=== PATIENT | male | born 1960 | race Caucasian/White ===

== ENCOUNTER 2017-10-23 17:10 | Emergency (ER) | payer SELFPAY ==
[2017-10-23] MEDS ORDERED: Sodium Chloride 0.9% 10 ML Syringe FLUSH PRN ×2 (17:26→19:11)
[2017-10-23 18:21] LABS: CHLORIDE,CL 60 mmol/L (98-107); SODIUM,NA 108 mmol/L (136-145)
[2017-10-23] MEDS ORDERED: Potassium Chloride 20 MEQ Tab.ER PO ONE (18:21)
[2017-10-23] MEDS ORDERED: Potassium Chloride 10 MEQ in Premix Bag 1 BAG IV ONE (18:22)
[2017-10-23] MEDS ORDERED: LORazepam 2 MG/ML MDV IVPUSH ONE ×2 (18:38→19:25)
[2017-10-23] MEDS ORDERED: Sodium Chloride 0.9% 1,000 ML IV ONE (18:49)
[2017-10-23 19:07] LABS: SODIUM,NA 108 mmol/L (136-145)
[2017-10-23 19:08] LABS: CHLORIDE,CL 61 mmol/L (98-107)
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
[2017-10-23] MEDS ORDERED: Sodium Chloride 3% 500 ML IV SCH (20:15)
[2017-10-23 20:52] VITALS: BP 129/67
== END 2017-10-23 20:30 ==
LOC: LL.ED 17:10
DX: F10.239 Alcohol dependence with withdrawal, unspecified (principal); E87.1 Hypo-osmolality and hyponatremia; E87.6 Hypokalemia; Y90.0 Blood alcohol level of less than 20 mg/100 ml; I10 Essential (primary) hypertension; E78.00 Pure hypercholesterolemia, unspecified
CPT/HCPCS: 36415; 70450; 80053; 80305; 81001; 82140; 83605; 85025; 93005; 96365; 96375; 96376; 99285; A9270; G0480; J2060; J3480; J7050

== ENCOUNTER 2020-02-29 20:04 | Emergency (ER) | payer MEDICAID ==
[2020-02-29 20:07] VITALS: BP 120/85; PULSE 80
[2020-02-29] MEDS: Ondansetron 4 MG/2 ML SDV IVPUSH ONE (20:28)
[2020-02-29] MEDS: Lactated Ringers 1,000 ML IV ONE (20:28)
[2020-02-29] MEDS: Sodium Chloride 0.9% 10 ML Syringe FLUSH PRN (20:29)
[2020-02-29 20:52] LABS: CHLORIDE,CL 97 mmol/L (98-107); SODIUM,NA 139 mmol/L (136-145)
[2020-02-29] MEDS: LORazepam 2 MG/ML SDV IVPUSH ONE (21:12)
[2020-02-29] MEDS: Thiamine 100 MG in Sodium Chloride 0.9% 100 ML IV ONE (21:16)
[2020-02-29] MEDS: Ondansetron 4 MG/2 ML SDV ONE (21:19)
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
[2020-02-29] MEDS: Pantoprazole 40 MG Vial IVPUSH ONE (22:02)
[2020-02-29] MEDS: Iopamidol 755 Mg/ML 100 ML Bottle IVPUSH STA (22:03)
== END 2020-02-29 22:12 | disposition home or self-care (01) ==
LOC: LL.ED 20:04
DX: F10.129 Alcohol abuse with intoxication, unspecified (principal); I10 Essential (primary) hypertension; Y90.8 Blood alcohol level of 240 mg/100 ml or more; E86.0 Dehydration; R63.4 Abnormal weight loss; R11.2 Nausea with vomiting, unspecified; F17.200 Nicotine dependence, unspecified, uncomplicated
CPT/HCPCS: 36415; 71046; 71275; 74019; 74177; 80053; 80307; 83880; 85025; 85379; 96361; 96365; 96375; 99284; C9113; J2060; J2405; J3411; J7050; J7120; Q9967

== ENCOUNTER 2020-03-12 19:01 | Emergency (ER) | payer MEDICAID ==
[2020-03-12] MEDS ORDERED: Ondansetron 4 MG/2 ML SDV IVPUSH PRN (19:23)
[2020-03-12] MEDS ORDERED: Sodium Chloride 0.9% 1,000 ML IV ONE (19:23)
[2020-03-12] MEDS ORDERED: Sodium Chloride 0.9% 10 ML Syringe FLUSH PRN (19:25)
[2020-03-12 19:31] VITALS: BP 114/85; PULSE 80
[2020-03-12 19:47] LABS: CHLORIDE,CL 102 mmol/L (98-107); SODIUM,NA 144 mmol/L (136-145)
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
== END 2020-03-12 20:20 | disposition left against medical advice (07) ==
LOC: LL.ED 19:01
DX: F10.129 Alcohol abuse with intoxication, unspecified (principal); E83.42 Hypomagnesemia; D69.6 Thrombocytopenia, unspecified; D72.819 Decreased white blood cell count, unspecified; R79.89 Other specified abnormal findings of blood chemistry; R74.0 Nonspecific elevation of levels of transaminase and lactic acid dehydrogenase [LDH]; I10 Essential (primary) hypertension
CPT/HCPCS: 36415; 80053; 80307; 83605; 83735; 85025; 99284

== ENCOUNTER 2021-01-02 14:33 | Emergency (ER) | payer MEDICAID ==
[2021-01-02 14:39] VITALS: BP 151/90; PULSE 90
[2021-01-02 15:15] LABS: CHLORIDE,CL 101 mmol/L (98-107); SODIUM,NA 139 mmol/L (136-145)
[2021-01-02] MEDS ORDERED: Sodium Chloride 0.9% 10 ML Syringe FLUSH PRN (15:25)
[2021-01-02] MEDS ORDERED: Thiamine 100 MG in Sodium Chloride 0.9% 100 ML IV ONE (15:27)
[2021-01-02] MEDS ORDERED: methylPREDNISolone Sodium Succinate 40 MG/1 ML SDV IVPUSH ONE (16:05)
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
== END 2021-01-02 18:30 | disposition home or self-care (01) ==
LOC: LL.ED 14:33
DX: M54.9 Dorsalgia, unspecified (principal); G89.29 Other chronic pain; E83.42 Hypomagnesemia; I10 Essential (primary) hypertension
CPT/HCPCS: 36415; 70450; 80053; 80307; 83735; 85025; 96365; 96366; 96368; 96374; 99283; 99284-25; J2920; J3411; J3475

== ENCOUNTER 2022-04-09 16:50 | Emergency (ER) | payer MEDICARE, MEDICAID ==
[2022-04-09 17:04] VITALS: BP 132/86; PULSE 100
[2022-04-09 17:49] LABS: CHLORIDE,CL 95 mmol/L (98-107); SODIUM,NA 138 mmol/L (136-145)
[2022-04-09 17:50] LABS: ANION GAP 25.1 meq/L (7-15); ESTIMATED GFR 90 mL/min (>=60)
[2022-04-09] MEDS ORDERED: Ondansetron 4 MG Tab.DIS PO SCH (18:15)
== END 2022-04-09 18:25 | disposition home or self-care (01) ==
LOC: LL.ED 16:50
DX: E87.1 Hypo-osmolality and hyponatremia (principal); I10 Essential (primary) hypertension; F17.210 Nicotine dependence, cigarettes, uncomplicated
CPT/HCPCS: 36415; 80053; 85025; 99283; 99284

== ENCOUNTER 2022-09-16 17:15 | Emergency (ER) | payer MEDICARE, MEDICAID ==
[2022-09-16 17:23] VITALS: PULSE 80
[2022-09-16 18:32] LABS: ANION GAP 17.9 meq/L (7-15)
[2022-09-16] MEDS ORDERED: Sodium Chloride 0.9% 10 ML Syringe FLUSH PRN (18:43)
[2022-09-16 18:45] LABS: CORONAVIRUS COVID-19 NAA NEGATIVE (NEGATIVE); RESPIRATORY SYNCYTIAL VIR NAA NEGATIVE (NEGATIVE)
[2022-09-16] MEDS ORDERED: Ondansetron 4 MG/2 ML SDV IVPUSH PRN (18:45)
[2022-09-16] MEDS ORDERED: Sodium Chloride 0.9% 1,000 ML IV ONE (18:45)
[2022-09-16] MEDS ORDERED: Ondansetron 4 MG Tab.DIS PO PRN (19:27)
[2022-09-16 20:46] VITALS: BP 120/80
== END 2022-09-16 19:40 | disposition home or self-care (01) ==
LOC: LL.ED 17:15
DX: K52.9 Noninfective gastroenteritis and colitis, unspecified (principal); I10 Essential (primary) hypertension; F17.210 Nicotine dependence, cigarettes, uncomplicated; Z79.899 Other long term (current) drug therapy; Z20.822 Contact with and (suspected) exposure to COVID-19
CPT/HCPCS: 0241U; 36415; 80053; 85025; 96361; 96374; 99284-25; J2405; J7030

== ENCOUNTER 2023-02-17 18:16 | Emergency (ER) | payer MEDICARE, MEDICAID ==
[2023-02-17] MEDS ORDERED: Sodium Chloride 0.9% 10 ML Syringe FLUSH PRN (19:10)
[2023-02-17] MEDS ORDERED: Sodium Chloride 0.9% 1,000 ML IV ONE (19:10)
[2023-02-17 19:31] LABS: ANION GAP 13.6 meq/L (7-15); CHLORIDE,CL 99 mmol/L (98-107); SODIUM,NA 139 mmol/L (136-145)
[2023-02-17 19:32] LABS: ESTIMATED GFR 100 mL/min (>=60)
[2023-02-17 22:18] VITALS: BP 112/85; PULSE 78
== END 2023-02-17 20:50 | disposition home or self-care (01) ==
LOC: LL.ED 18:16
DX: F10.920 Alcohol use, unspecified with intoxication, uncomplicated (principal); I10 Essential (primary) hypertension; Y90.2 Blood alcohol level of 40-59 mg/100 ml
CPT/HCPCS: 36415; 80053; 80143; 80307; 85025; 93005; 99284

== ENCOUNTER 2023-02-26 21:15 | Emergency (ER) | payer MEDICARE, MEDICAID ==
[2023-02-26] MEDS: Sodium Chloride 0.9% 10 ML Syringe FLUSH PRN ×4 (21:26→23:50)
[2023-02-26] MEDS ORDERED: Sodium Chloride 0.9% 1,000 ML IV SCH ×2 (21:30→23:45)
[2023-02-26 21:36] LABS: BASOPHILS ABSOLUTE AUTO 0.14 K/uL (0.00-0.20); BASOPHILS PERCENT AUTO 2.4 % (0.0-2.0); EOSINOPHILS ABSOLUTE AUTO 0.02 K/uL (0.00-0.50); EOSINOPHILS PERCENT AUTO 0.3 % (0.0-5.0); HEMATOCRIT 40.6 % (39.0-49.0); HEMOGLOBIN 13.4 g/dL (13.1-16.8); LYMPHOCYTES ABSOLUTE AUTO 2.37 K/uL (0.50-3.50); MEAN CORPUSCULAR HEMOGLOBIN 31.5 pg (28.2-33.3); MEAN CORPUSCULAR VOLUME 95.3 fL (84.0-98.0); MONOCYTES ABSOLUTE AUTO 0.92 K/uL (0.00-1.00); MONOCYTES PERCENT AUTO 15.9 % (2.0-14.0); NEUTROPHILS ABSOLUTE AUTO 2.33 K/uL (1.40-7.00); NEUTROPHILS PERCENT AUTO 40.4 % (45.0-80.0); PLATELET COUNT,PLT 278 K/uL (150-350); RED BLOOD CELL COUNT 4.26 M/uL (4.33-5.41); RED CELL DISTRIBUTION WIDTH 17.2 % (11.2-14.1); WHITE BLOOD CELL COUNT,WBC 5.8 K/uL (4.0-10.2)
[2023-02-26 22:00] LABS: APPEARANCE,URINE CLEAR; BILIRUBIN,URINE NEGATIVE (NEGATIVE); COLOR,URINE YELLOW; GLUCOSE,URINE NEGATIVE (NEGATIVE); KETONES,URINE 15 mg/dL (NEGATIVE); LEUKOCYTE ESTERASE,URINE NEGATIVE (NEGATIVE); NITRITE,URINE NEGATIVE (NEGATIVE); OCCULT BLOOD,URINE NEGATIVE (NEGATIVE); PROTEIN,URINE NEGATIVE (NEGATIVE); UROBILINOGEN,URINE 0.2 E.U./dL (0.2-1.0)
[2023-02-26 22:02] LABS: LACTIC ACID 7.1 mmol/L (0.4-2.0)
[2023-02-26 22:05] LABS: ALANINE AMINOTRANSFERASE,ALT 58 U/L (12-78); ALBUMIN 4.2 g/dL (3.4-5.0); ALKALINE PHOSPHATASE 99 IU/L (46-116); ANION GAP 12.9 meq/L (7-15); ASPARTATE AMNIOTRANSFERASE,AST 73 U/L (15-37); BILIRUBIN TOTAL 0.5 mg/dL (0.2-1.0); BLOOD UREA NITROGEN,BUN 15 mg/dL (7-18); CALCIUM 8.8 mg/dL (8.5-10.1); CARBON DIOXIDE,CO2 28.1 mmol/L (21.0-32.0); CHLORIDE,CL 100 mmol/L (98-107); CREATININE 0.91 mg/dL (0.51-1.17); GLUCOSE RANDOM 173 mg/dL (70-99); MAGNESIUM 1.7 mg/dL (1.8-2.4); POTASSIUM,K 4.3 mmol/L (3.5-5.1); PROTEIN TOTAL,TP 7.8 g/dL (6.4-8.2); SODIUM,NA 141 mmol/L (136-145); TSH ULTRASENSITIVE 5.299 mIU/mL (0.358-3.740)
[2023-02-26 22:07] LABS: ESTIMATED GFR 96 mL/min (>=60)
[2023-02-26 22:08] LABS: C-REACTIVE PROTEIN < 0.2 mg/dL (<=0.9)
[2023-02-26 22:13] LABS: AMPHETAMINES SCREEN, URINE NEGATIVE (NEGATIVE); BARBITURATE SCREEN,URINE NEGATIVE (NEGATIVE); BENZODIAZEPINES SCREEN,URINE NEGATIVE (NEGATIVE); COCAINE METABOLITES,URINE NEGATIVE (NEGATIVE); EDDP,URINE SCREEN NEGATIVE (NEGATIVE); METHAMPHETAMINES SCREEN, URINE NEGATIVE (NEGATIVE); TCA SCREEN,URINE NEGATIVE (NEGATIVE); THC SCREEN,URINE 50 NG/ML NEGATIVE (NEGATIVE)
[2023-02-26 22:16] LABS: BUPRENORPHINE SCREEN,URINE NEGATIVE (NEGATIVE); OXYCODONE SCREEN,URINE NEGATIVE (NEGATIVE)
[2023-02-26 22:26] LABS: INR 0.9; PROTHROMBIN TIME 9.3 SEC (9.6-11.3)
[2023-02-26 22:28] LABS: PTT,PARTIAL THROMBOPLSTIN TIME 23.2 SEC (23.6-29.8)
[2023-02-26 22:41] LABS: CORONAVIRUS COVID-19 NAA NEGATIVE (NEGATIVE); INFLUENZA A NAA NEGATIVE (NEGATIVE); INFLUENZA B NAA NEGATIVE (NEGATIVE); RESPIRATORY SYNCYTIAL VIR NAA NEGATIVE (NEGATIVE)
[2023-02-26] MEDS ORDERED: Magnesium Sulfate/Water 2 GM in Premix Bag 1 BAG IV ONE (23:48)
[2023-02-27 00:37] VITALS: BP 112/76; PULSE 78
== END 2023-02-27 00:16 ==
LOC: LL.ED 21:15
DX: R56.9 Unspecified convulsions (principal); R45.851 Suicidal ideations; I10 Essential (primary) hypertension; Z20.822 Contact with and (suspected) exposure to COVID-19
CPT/HCPCS: 0241U; 36415; 70450; 80053; 80305-QW; 80307; 81003; 82140; 82550; 83605; 83735; 84443; 84484; 85025; 85610; 85730; 86140; 93005; 93010; 96361; 96365; 96375; 96376; 99284; 99285-25; J3360; J3475; J3490; J7030

== ENCOUNTER 2023-03-03 18:39 | Emergency (ER) | payer MEDICARE, MEDICAID ==
[2023-03-03] MEDS ORDERED: Sodium Chloride 0.9% 10 ML Syringe FLUSH PRN (18:42)
[2023-03-03] MEDS: Sodium Chloride 0.9% 1,000 ML IV ONE (19:07)
[2023-03-03 19:11] LABS: BASOPHILS ABSOLUTE AUTO 0.09 K/uL (0.00-0.20); BASOPHILS PERCENT AUTO 1.1 % (0.0-2.0); EOSINOPHILS ABSOLUTE AUTO 0.08 K/uL (0.00-0.50); HEMATOCRIT 38.4 % (39.0-49.0); HEMOGLOBIN 12.7 g/dL (13.1-16.8); LYMPHOCYTES ABSOLUTE AUTO 3.34 K/uL (0.50-3.50); LYMPHOCYTES PERCENT AUTO 40.7 % (10.0-50.0); MEAN CORPUSCULAR HEMOGLOBIN 32.2 pg (28.2-33.3); MEAN CORPUSCULAR HGB CONC 33.1 g/dL (31.7-36.0); MEAN CORPUSCULAR VOLUME 97.5 fL (84.0-98.0); MONOCYTES ABSOLUTE AUTO 0.42 K/uL (0.00-1.00); MONOCYTES PERCENT AUTO 5.1 % (2.0-14.0); NEUTROPHILS ABSOLUTE AUTO 4.27 K/uL (1.40-7.00); NEUTROPHILS PERCENT AUTO 52.1 % (45.0-80.0); PLATELET COUNT,PLT 237 K/uL (150-350); RED BLOOD CELL COUNT 3.94 M/uL (4.33-5.41); RED CELL DISTRIBUTION WIDTH 17.5 % (11.2-14.1); WHITE BLOOD CELL COUNT,WBC 8.2 K/uL (4.0-10.2)
[2023-03-03] MEDS: Pantoprazole 40 MG Vial IVPUSH ONE (19:12)
[2023-03-03 19:26] VITALS: PULSE 70
[2023-03-03 19:31] VITALS: BP 107/74
[2023-03-03 19:45] LABS: ALANINE AMINOTRANSFERASE,ALT 90 U/L (12-78); ALKALINE PHOSPHATASE 94 IU/L (46-116); ANION GAP 10.8 meq/L (7-15); ASPARTATE AMNIOTRANSFERASE,AST 120 U/L (15-37); BILIRUBIN TOTAL 0.5 mg/dL (0.2-1.0); BLOOD UREA NITROGEN,BUN 10 mg/dL (7-18); CARBON DIOXIDE,CO2 31.2 mmol/L (21.0-32.0); CHLORIDE,CL 103 mmol/L (98-107); CREATININE 0.82 mg/dL (0.51-1.17); ETHANOL BLOOD MEDICAL 0.349 g/dL (0.000-0.080); GLUCOSE RANDOM 90 mg/dL (70-99); MAGNESIUM 1.8 mg/dL (1.8-2.4); POTASSIUM,K 3.6 mmol/L (3.5-5.1); PROTEIN TOTAL,TP 7.6 g/dL (6.4-8.2); SODIUM,NA 145 mmol/L (136-145)
[2023-03-03 19:46] LABS: ESTIMATED GFR 101 mL/min (>=60)
== END 2023-03-03 19:50 | disposition left against medical advice (07) ==
LOC: LL.ED 18:39
DX: F10.120 Alcohol abuse with intoxication, uncomplicated (principal); I10 Essential (primary) hypertension; Z79.899 Other long term (current) drug therapy
CPT/HCPCS: 36415; 80053; 80307; 83605; 83735; 85025; 96361; 96374; 96375; 99283; 99285-25; C9113; J3360; J7030

== ENCOUNTER 2023-03-08 14:44 | Emergency (ER) | payer MEDICARE, MEDICAID ==
[2023-03-08] MEDS ORDERED: Sodium Chloride 0.9% 10 ML Syringe FLUSH PRN (15:13)
[2023-03-08 15:29] LABS: BASOPHILS ABSOLUTE AUTO 0.09 K/uL (0.00-0.20); BASOPHILS PERCENT AUTO 1.4 % (0.0-2.0); EOSINOPHILS ABSOLUTE AUTO 0.04 K/uL (0.00-0.50); EOSINOPHILS PERCENT AUTO 0.6 % (0.0-5.0); HEMATOCRIT 39.1 % (39.0-49.0); HEMOGLOBIN 13.3 g/dL (13.1-16.8); LYMPHOCYTES ABSOLUTE AUTO 2.52 K/uL (0.50-3.50); LYMPHOCYTES PERCENT AUTO 40.2 % (10.0-50.0); MEAN CORPUSCULAR VOLUME 94.2 fL (84.0-98.0); MONOCYTES ABSOLUTE AUTO 0.61 K/uL (0.00-1.00); MONOCYTES PERCENT AUTO 9.7 % (2.0-14.0); NEUTROPHILS ABSOLUTE AUTO 3.01 K/uL (1.40-7.00); NEUTROPHILS PERCENT AUTO 48.1 % (45.0-80.0); PLATELET COUNT,PLT 247 K/uL (150-350); RED BLOOD CELL COUNT 4.15 M/uL (4.33-5.41); RED CELL DISTRIBUTION WIDTH 17.1 % (11.2-14.1); WHITE BLOOD CELL COUNT,WBC 6.3 K/uL (4.0-10.2)
[2023-03-08 15:53] LABS: ALANINE AMINOTRANSFERASE,ALT 55 U/L (12-78); ALBUMIN 4.2 g/dL (3.4-5.0); ALKALINE PHOSPHATASE 110 IU/L (46-116); ANION GAP 10.9 meq/L (7-15); ASPARTATE AMNIOTRANSFERASE,AST 57 U/L (15-37); BILIRUBIN TOTAL 0.5 mg/dL (0.2-1.0); BLOOD UREA NITROGEN,BUN 8 mg/dL (7-18); CALCIUM 8.8 mg/dL (8.5-10.1); CARBON DIOXIDE,CO2 30.1 mmol/L (21.0-32.0); CHLORIDE,CL 99 mmol/L (98-107); CREATININE 0.82 mg/dL (0.51-1.17); ESTIMATED GFR 101 mL/min (>=60); ETHANOL BLOOD MEDICAL 0.368 g/dL (0.000-0.080); GLUCOSE RANDOM 137 mg/dL (70-99); POTASSIUM,K 3.5 mmol/L (3.5-5.1); SODIUM,NA 140 mmol/L (136-145)
[2023-03-08 16:58] LABS: AMPHETAMINES SCREEN, URINE NEGATIVE (NEGATIVE); BARBITURATE SCREEN,URINE NEGATIVE (NEGATIVE); BENZODIAZEPINES SCREEN,URINE NEGATIVE (NEGATIVE); COCAINE METABOLITES,URINE NEGATIVE (NEGATIVE); EDDP,URINE SCREEN NEGATIVE (NEGATIVE); METHAMPHETAMINES SCREEN, URINE NEGATIVE (NEGATIVE); TCA SCREEN,URINE NEGATIVE (NEGATIVE); THC SCREEN,URINE 50 NG/ML NEGATIVE (NEGATIVE)
[2023-03-08 16:59] LABS: BUPRENORPHINE SCREEN,URINE NEGATIVE (NEGATIVE); OXYCODONE SCREEN,URINE NEGATIVE (NEGATIVE)
[2023-03-08] MEDS: LORazepam 2 MG/ML SDV IVPUSH ONE (18:58)
[2023-03-08] MEDS: LORazepam 2 MG/ML SDV ONE (18:58)
[2023-03-08 22:31] VITALS: BP 120/77; PULSE 87
== END 2023-03-08 21:15 ==
LOC: LL.ED 14:44
DX: T14.91XA Suicide attempt, initial encounter (principal); F17.210 Nicotine dependence, cigarettes, uncomplicated; I10 Essential (primary) hypertension; Z79.899 Other long term (current) drug therapy
CPT/HCPCS: 36415; 80053; 80305; 80307; 85025; 93005; 96374; 99285; J2060

== ENCOUNTER 2023-03-17 19:24 | Emergency (ER) | payer MEDICARE, MEDICAID ==
[2023-03-17] MEDS ORDERED: LORazepam 2 MG/ML SDV IVPUSH ONE (19:26)
[2023-03-17] MEDS ORDERED: Sodium Chloride 0.9% 10 ML Syringe FLUSH PRN (19:51)
[2023-03-17] MEDS ORDERED: Sodium Chloride 0.9% 1,000 ML IV ONE (19:52)
[2023-03-17] MEDS ORDERED: Ondansetron 4 MG/2 ML SDV IVPUSH PRN (19:54)
[2023-03-17 19:57] LABS: BASOPHILS ABSOLUTE AUTO 0.05 K/uL (0.00-0.20); BASOPHILS PERCENT AUTO 0.7 % (0.0-2.0); EOSINOPHILS ABSOLUTE AUTO 0.02 K/uL (0.00-0.50); EOSINOPHILS PERCENT AUTO 0.3 % (0.0-5.0); HEMATOCRIT 41.1 % (39.0-49.0); HEMOGLOBIN 14.3 g/dL (13.1-16.8); LYMPHOCYTES ABSOLUTE AUTO 2.18 K/uL (0.50-3.50); LYMPHOCYTES PERCENT AUTO 29.3 % (10.0-50.0); MEAN CORPUSCULAR HEMOGLOBIN 31.9 pg (28.2-33.3); MEAN CORPUSCULAR HGB CONC 34.8 g/dL (31.7-36.0); MEAN CORPUSCULAR VOLUME 91.7 fL (84.0-98.0); MONOCYTES ABSOLUTE AUTO 1.14 K/uL (0.00-1.00); MONOCYTES PERCENT AUTO 15.3 % (2.0-14.0); NEUTROPHILS ABSOLUTE AUTO 4.05 K/uL (1.40-7.00); NEUTROPHILS PERCENT AUTO 54.4 % (45.0-80.0); PLATELET COUNT,PLT 158 K/uL (150-350); RED BLOOD CELL COUNT 4.48 M/uL (4.33-5.41); WHITE BLOOD CELL COUNT,WBC 7.4 K/uL (4.0-10.2)
[2023-03-17 20:02] LABS: ALANINE AMINOTRANSFERASE,ALT 40 U/L (12-78); ALBUMIN 4.5 g/dL (3.4-5.0); ALKALINE PHOSPHATASE 119 IU/L (46-116); ASPARTATE AMNIOTRANSFERASE,AST 70 U/L (15-37); BILIRUBIN TOTAL 1.5 mg/dL (0.2-1.0); BLOOD UREA NITROGEN,BUN 7 mg/dL (7-18); CALCIUM 9.5 mg/dL (8.5-10.1); CARBON DIOXIDE,CO2 28.2 mmol/L (21.0-32.0); CHLORIDE,CL 88 mmol/L (98-107); CREATININE 0.86 mg/dL (0.51-1.17); ESTIMATED GFR 99 mL/min (>=60); ETHANOL BLOOD MEDICAL 0.333 g/dL (0.000-0.080); GLUCOSE RANDOM 245 mg/dL (70-99); POTASSIUM,K 3.2 mmol/L (3.5-5.1); PROTEIN TOTAL,TP 8.4 g/dL (6.4-8.2); SODIUM,NA 130 mmol/L (136-145)
[2023-03-17] MEDS ORDERED: Potassium Chloride 10 MEQ Tab.ER PO ONE (20:42)
[2023-03-17 21:04] LABS: AMPHETAMINES SCREEN, URINE NEGATIVE (NEGATIVE); BARBITURATE SCREEN,URINE NEGATIVE (NEGATIVE); BENZODIAZEPINES SCREEN,URINE NEGATIVE (NEGATIVE); BUPRENORPHINE SCREEN,URINE NEGATIVE (NEGATIVE); COCAINE METABOLITES,URINE NEGATIVE (NEGATIVE); EDDP,URINE SCREEN NEGATIVE (NEGATIVE); METHAMPHETAMINES SCREEN, URINE NEGATIVE (NEGATIVE); OXYCODONE SCREEN,URINE NEGATIVE (NEGATIVE); TCA SCREEN,URINE NEGATIVE (NEGATIVE); THC SCREEN,URINE 50 NG/ML NEGATIVE (NEGATIVE)
[2023-03-17 21:12] VITALS: BP 116/84; PULSE 91
== END 2023-03-17 21:30 | disposition home or self-care (01) ==
LOC: LL.ED 19:24
DX: F10.929 Alcohol use, unspecified with intoxication, unspecified (principal); E87.1 Hypo-osmolality and hyponatremia; I10 Essential (primary) hypertension; F17.210 Nicotine dependence, cigarettes, uncomplicated; Z79.899 Other long term (current) drug therapy
CPT/HCPCS: 36415; 80053; 80305-QW; 80307; 85025; 96361; 96374; 96375; 99284; 99284-25; A9270-GY; J2060; J2405; J7030

== ENCOUNTER 2023-03-21 15:25 | Emergency (ER) | payer MEDICARE, MEDICAID ==
[2023-03-21] MEDS ORDERED: Sodium Chloride 0.9% 10 ML Syringe FLUSH PRN (15:42)
[2023-03-21] MEDS: Sodium Chloride 0.9% 1,000 ML IV ONE ×2 (15:45→16:48)
[2023-03-21 15:51] LABS: BASOPHILS ABSOLUTE AUTO 0.08 K/uL (0.00-0.20); BASOPHILS PERCENT AUTO 1.2 % (0.0-2.0); EOSINOPHILS ABSOLUTE AUTO 0.04 K/uL (0.00-0.50); EOSINOPHILS PERCENT AUTO 0.6 % (0.0-5.0); HEMATOCRIT 40.2 % (39.0-49.0); HEMOGLOBIN 13.6 g/dL (13.1-16.8); LYMPHOCYTES ABSOLUTE AUTO 1.74 K/uL (0.50-3.50); MEAN CORPUSCULAR HEMOGLOBIN 32.2 pg (28.2-33.3); MEAN CORPUSCULAR HGB CONC 33.8 g/dL (31.7-36.0); MONOCYTES ABSOLUTE AUTO 0.67 K/uL (0.00-1.00); MONOCYTES PERCENT AUTO 9.6 % (2.0-14.0); NEUTROPHILS ABSOLUTE AUTO 4.42 K/uL (1.40-7.00); NEUTROPHILS PERCENT AUTO 63.6 % (45.0-80.0); PLATELET COUNT,PLT 142 K/uL (150-350); RED BLOOD CELL COUNT 4.23 M/uL (4.33-5.41); RED CELL DISTRIBUTION WIDTH 16.5 % (11.2-14.1)
[2023-03-21 16:03] LABS: ALANINE AMINOTRANSFERASE,ALT 73 U/L (12-78); ALBUMIN 4.3 g/dL (3.4-5.0); ALKALINE PHOSPHATASE 133 IU/L (46-116); ASPARTATE AMNIOTRANSFERASE,AST 165 U/L (15-37); BILIRUBIN TOTAL 1.3 mg/dL (0.2-1.0); BLOOD UREA NITROGEN,BUN 13 mg/dL (7-18); CALCIUM 9.1 mg/dL (8.5-10.1); CARBON DIOXIDE,CO2 19.3 mmol/L (21.0-32.0); CHLORIDE,CL 92 mmol/L (98-107); CREATININE 0.84 mg/dL (0.51-1.17); ETHANOL BLOOD MEDICAL 0.144 g/dL (0.000-0.080); GLUCOSE RANDOM 63 mg/dL (70-99); POTASSIUM,K 3.5 mmol/L (3.5-5.1); PROTEIN TOTAL,TP 8.1 g/dL (6.4-8.2); SODIUM,NA 136 mmol/L (136-145)
[2023-03-21 16:04] LABS: APPEARANCE,URINE CLEAR; BILIRUBIN,URINE SMALL (NEGATIVE); COLOR,URINE DARK YELLOW; GLUCOSE,URINE NEGATIVE (NEGATIVE); KETONES,URINE >=160 mg/dL (NEGATIVE); LEUKOCYTE ESTERASE,URINE NEGATIVE (NEGATIVE); NITRITE,URINE NEGATIVE (NEGATIVE); OCCULT BLOOD,URINE TRACE-INTACT (NEGATIVE); PH,URINE 5.5 (5.0-9.0); PROTEIN,URINE 100 mg/dL (NEGATIVE)
[2023-03-21 16:04] LABS: ANION GAP 28.2 meq/L (7-15); ESTIMATED GFR 100 mL/min (>=60)
[2023-03-21 16:21] LABS: BACTERIA,URINE NOT SEEN /HPF (NONE TO FEW); EPITHELIAL CELLS,URINE FEW /LPF; HYALINE CASTS,URINE FEW; MUCUS,URINE MODERATE /LPF (NEGATIVE); RBC,URINE 0-5 /HPF; WBC,URINE 0-5 /HPF
[2023-03-21] MEDS: 50% Dextrose in Water 50 ML Syringe IVPUSH ONE (16:49)
[2023-03-21] MEDS: LORazepam 2 MG/ML SDV IVPUSH ONE (16:55)
[2023-03-21] MEDS: Promethazine 25 MG/ML SDV IM ONE (17:04)
[2023-03-21 20:37] VITALS: BP 107/79; PULSE 75
== END 2023-03-21 19:03 | disposition left against medical advice (07) ==
LOC: LL.ED 15:25
DX: F10.129 Alcohol abuse with intoxication, unspecified (principal); I10 Essential (primary) hypertension; Y90.6 Blood alcohol level of 120-199 mg/100 ml
CPT/HCPCS: 36415; 80053; 80307; 81001; 82947; 83605; 84484; 85025; 96361; 96372; 96374; 96375; 99284; 99284-25; J2060; J2550; J3490; J7030

== ENCOUNTER 2023-03-22 22:10 | Emergency (ER) | payer MEDICARE, MEDICAID ==
[2023-03-22] MEDS ORDERED: Sodium Chloride 0.9% 1,000 ML IV ONE (22:20)
[2023-03-22] MEDS ORDERED: Sodium Chloride 0.9% 10 ML Syringe FLUSH PRN (22:21)
[2023-03-22 22:23] LABS: BASOPHILS ABSOLUTE AUTO 0.09 K/uL (0.00-0.20); BASOPHILS PERCENT AUTO 1.1 % (0.0-2.0); EOSINOPHILS ABSOLUTE AUTO 0.08 K/uL (0.00-0.50); HEMATOCRIT 38.6 % (39.0-49.0); HEMOGLOBIN 13.2 g/dL (13.1-16.8); LYMPHOCYTES PERCENT AUTO 36.9 % (10.0-50.0); MEAN CORPUSCULAR HEMOGLOBIN 32.2 pg (28.2-33.3); MEAN CORPUSCULAR HGB CONC 34.2 g/dL (31.7-36.0); MEAN CORPUSCULAR VOLUME 94.1 fL (84.0-98.0); MONOCYTES ABSOLUTE AUTO 0.48 K/uL (0.00-1.00); MONOCYTES PERCENT AUTO 6.1 % (2.0-14.0); NEUTROPHILS ABSOLUTE AUTO 4.31 K/uL (1.40-7.00); NEUTROPHILS PERCENT AUTO 54.9 % (45.0-80.0); PLATELET COUNT,PLT 135 K/uL (150-350); RED CELL DISTRIBUTION WIDTH 16.5 % (11.2-14.1); WHITE BLOOD CELL COUNT,WBC 7.9 K/uL (4.0-10.2)
[2023-03-22 22:29] LABS: APPEARANCE,URINE CLEAR; BILIRUBIN,URINE NEGATIVE (NEGATIVE); COLOR,URINE YELLOW; GLUCOSE,URINE NEGATIVE (NEGATIVE); KETONES,URINE 15 mg/dL (NEGATIVE); LEUKOCYTE ESTERASE,URINE NEGATIVE (NEGATIVE); NITRITE,URINE NEGATIVE (NEGATIVE); OCCULT BLOOD,URINE NEGATIVE (NEGATIVE); PROTEIN,URINE NEGATIVE (NEGATIVE); UROBILINOGEN,URINE 0.2 E.U./dL (0.2-1.0)
[2023-03-22 22:54] LABS: RBC,URINE 0-5 /HPF; WBC,URINE 0-5 /HPF
[2023-03-22 22:59] LABS: AMPHETAMINES SCREEN, URINE NEGATIVE (NEGATIVE); BARBITURATE SCREEN,URINE NEGATIVE (NEGATIVE); BENZODIAZEPINES SCREEN,URINE NEGATIVE (NEGATIVE); COCAINE METABOLITES,URINE NEGATIVE (NEGATIVE); EDDP,URINE SCREEN NEGATIVE (NEGATIVE); METHAMPHETAMINES SCREEN, URINE NEGATIVE (NEGATIVE); TCA SCREEN,URINE NEGATIVE (NEGATIVE); THC SCREEN,URINE 50 NG/ML NEGATIVE (NEGATIVE)
[2023-03-22 23:00] LABS: BUPRENORPHINE SCREEN,URINE NEGATIVE (NEGATIVE); OXYCODONE SCREEN,URINE NEGATIVE (NEGATIVE)
[2023-03-22 23:02] LABS: BILIRUBIN TOTAL 1.4 mg/dL (0.2-1.0); CALCIUM 8.8 mg/dL (8.5-10.1); CARBON DIOXIDE,CO2 21.8 mmol/L (21.0-32.0); CREATININE 0.72 mg/dL (0.51-1.17); ETHANOL BLOOD MEDICAL 0.386 g/dL (0.000-0.080); POTASSIUM,K 4.3 mmol/L (3.5-5.1); PROTEIN TOTAL,TP 7.6 g/dL (6.4-8.2)
[2023-03-22 23:03] LABS: ANION GAP 23.5 meq/L (7-15)
[2023-03-22] MEDS ORDERED: Sodium Chloride 0.9% 1,000 ML IV SCH (23:45)
[2023-03-23 00:03] VITALS: BP 114/85; PULSE 79
[2023-03-23] MEDS ORDERED: LORazepam 2 MG/ML SDV IVPUSH ONE (00:04)
[2023-03-23] MEDS ORDERED: Thiamine 200 MG/2 ML MDV IVPUSH ONE (00:09)
== END 2023-03-23 00:34 ==
LOC: LL.ED 22:10
DX: F10.229 Alcohol dependence with intoxication, unspecified (principal); E78.00 Pure hypercholesterolemia, unspecified; I10 Essential (primary) hypertension; Z72.0 Tobacco use; Y90.8 Blood alcohol level of 240 mg/100 ml or more
CPT/HCPCS: 36415; 80053; 80305-QW; 80307; 81001; 83605; 85025; 96361; 96374; 96375; 99284-25; J2060; J3411; J7030

== ENCOUNTER 2023-04-08 11:40 | Emergency (ER) | payer OTHER, MEDICARE, MEDICAID ==
[2023-04-08] MEDS ORDERED: Sodium Chloride 0.9% 10 ML Syringe FLUSH PRN (11:59)
[2023-04-08 12:06] LABS: BASOPHILS ABSOLUTE AUTO 0.13 K/uL (0.00-0.20); BASOPHILS PERCENT AUTO 1.2 % (0.0-2.0); EOSINOPHILS ABSOLUTE AUTO 0.19 K/uL (0.00-0.50); EOSINOPHILS PERCENT AUTO 1.7 % (0.0-5.0); HEMATOCRIT 35.5 % (39.0-49.0); HEMOGLOBIN 11.2 g/dL (13.1-16.8); LYMPHOCYTES ABSOLUTE AUTO 2.69 K/uL (0.50-3.50); MEAN CORPUSCULAR HEMOGLOBIN 32.2 pg (28.2-33.3); MEAN CORPUSCULAR HGB CONC 31.5 g/dL (31.7-36.0); MONOCYTES ABSOLUTE AUTO 0.84 K/uL (0.00-1.00); MONOCYTES PERCENT AUTO 7.5 % (2.0-14.0); NEUTROPHILS ABSOLUTE AUTO 7.38 K/uL (1.40-7.00); NEUTROPHILS PERCENT AUTO 65.6 % (45.0-80.0); PLATELET COUNT,PLT 291 K/uL (150-350); RED BLOOD CELL COUNT 3.48 M/uL (4.33-5.41); WHITE BLOOD CELL COUNT,WBC 11.2 K/uL (4.0-10.2)
[2023-04-08 12:13] LABS: ALANINE AMINOTRANSFERASE,ALT 65 U/L (12-78); ALBUMIN 3.8 g/dL (3.4-5.0); ALKALINE PHOSPHATASE 76 IU/L (46-116); ANION GAP 0.7 meq/L (7-15); ASPARTATE AMNIOTRANSFERASE,AST 32 U/L (15-37); BILIRUBIN TOTAL 0.4 mg/dL (0.2-1.0); BLOOD UREA NITROGEN,BUN 18 mg/dL (7-18); CALCIUM 9.5 mg/dL (8.5-10.1); CARBON DIOXIDE,CO2 30.3 mmol/L (21.0-32.0); CHLORIDE,CL 106 mmol/L (98-107); CREATININE 0.83 mg/dL (0.51-1.17); GLUCOSE RANDOM 88 mg/dL (70-99); POTASSIUM,K 3.7 mmol/L (3.5-5.1); PROTEIN TOTAL,TP 7.3 g/dL (6.4-8.2); SODIUM,NA 137 mmol/L (136-145)
[2023-04-08 12:18] LABS: ESTIMATED GFR 100 mL/min (>=60)
[2023-04-08 12:23] LABS: APPEARANCE,URINE CLEAR; BILIRUBIN,URINE NEGATIVE (NEGATIVE); COLOR,URINE YELLOW; GLUCOSE,URINE NEGATIVE (NEGATIVE); KETONES,URINE NEGATIVE (NEGATIVE); LEUKOCYTE ESTERASE,URINE NEGATIVE (NEGATIVE); NITRITE,URINE NEGATIVE (NEGATIVE); OCCULT BLOOD,URINE NEGATIVE (NEGATIVE); PROTEIN,URINE NEGATIVE (NEGATIVE); UROBILINOGEN,URINE 0.2 E.U./dL (0.2-1.0)
== END 2023-04-08 13:11 | disposition home or self-care (01) ==
LOC: LL.ED 11:40
DX: S50.12XA Contusion of left forearm, initial encounter (principal); S80.01XA Contusion of right knee, initial encounter; S70.02XA Contusion of left hip, initial encounter; M79.672 Pain in left foot; M25.511 Pain in right shoulder; I10 Essential (primary) hypertension; Z79.899 Other long term (current) drug therapy; V89.2XXA Person injured in unspecified motor-vehicle accident, traffic, initial encounter; Y92.410 Unspecified street and highway as the place of occurrence of the external cause
CPT/HCPCS: 73090-LT; 73560-RT; 80053; 81003; 85025; 99283; 99284